=== PATIENT | male | born 1955 | race American Indian/Alaskan Native ===

== ENCOUNTER 2017-07-25 11:16 | Outpatient (CLI) | payer OTHER ==
--- NOTE | 2017-07-25 12:26 | XRay Report ---
XRAY RIGHT SHOULDER THREE VIEWS: 07/25/17 11:16:00 CLINICAL: Right shoulder pain. FINDINGS: Normal glenohumeral alignment. Normal AC joint. No fracture or dislocation. Capsular calcifications at the inferior glenoid glenoid. IMPRESSION: Suspect adhesive capsulitis.
== END 2017-07-25 11:17 | disposition home or self-care (01) ==
LOC: SPVIMAG 11:16
PROVIDERS: ATTEND Orthopaedic Surgery
DX: M25.811 Other specified joint disorders, right shoulder (principal)